=== PATIENT | male | born 1990 | race Caucasian/White ===

== ENCOUNTER 2020-12-04 21:44 | Emergency (ER) | payer SELFPAY ==
[~2020-12-04] VITALS: Ht 175.3 cm; Wt 68.9 kg
[2020-12-04 21:56] VITALS: BP 132/86
[2020-12-04] MEDS ORDERED: LIDOCAINE/EPI 1% 1:100000 20 ML VIAL INJ ONE (22:00)
[2020-12-04 22:45] VITALS: BP 136/86
--- NOTE | 2020-12-04 22:45 | NUR ---
Patient discharged with v/s stable. Written and verbal after care instructions given and explained. Patient verbalized understanding. Ambulatory with in custody. All questions addressed prior to discharge. Advised to follow up with PMD. MEDICALLY CLEARED TO BOOK
[2020-12-04] MEDS ORDERED: CEPH-588 PO (22:54)
[2020-12-04] MEDS ORDERED: BACITRACIN OINT 500 UNITS/GM PKT TP ONE (23:10)
== END 2020-12-04 22:45 ==
LOC: MED 21:44
DX: S91.312A Laceration without foreign body, left foot, initial encounter (principal); S40.212A Abrasion of left shoulder, initial encounter; Z02.89 Encounter for other administrative examinations; W25.XXXA Contact with sharp glass, initial encounter; Y93.89 Activity, other specified; Y92.89 Other specified places as the place of occurrence of the external cause; Y99.8 Other external cause status
CPT/HCPCS: 73030; 73630; 99284; J2001; 90715